=== PATIENT | male | born 1960 | race Caucasian/White ===

== ENCOUNTER 2021-02-24 16:40 | Inpatient (IN) ==
[2021-02-24] MEDS ORDERED: Isovue-370 500 ML BOTTLE IVP ONE (16:54)
[2021-02-24 17:13] LABS: ABG Base Excess -12 mEq/L (-2 to 3); ABG HCO3 13 mEq/L (21-27); ABG Oxygen Saturation 94 % (95-98); ABG PCO2 27 mmHg (35-45); ABG PO2 77 mmHg (85-104); ABG TCO2 14 mEq/L (20-26)
[2021-02-24 17:15] LABS: Basophils # 0.1 K/mcL (0.0-0.2); Basophils % 0.4 %; Hematocrit 43.3 % (37.5-50.1); Hemoglobin 14.2 g/dL (12.9-16.9); Immature Granulocytes % 2.1 % (0-4); Mean Corpuscular HGB Conc 32.8 g/dL (31.6-35.5); Mean Corpuscular Hemoglobin 28.7 pg (28.0-33.3); Mean Corpuscular Volume 87.7 fL (83.0-100.0); Mean Platelet Volume 10.2 fL (9.4-12.4); Monocytes # 0.7 K/mcL (0.0-1.3); Monocytes % 4.6 %; Neutrophils # 12.3 K/mcL (1.6-8.9); Nucleated Red Blood Cells 0.1 /100 WBC (0); Platelet Count 356 K/mcL (140-400); Red Blood Count 4.94 M/mcL (4.19-5.50); Red Cell Distribution Width 13.8 % (11.5-14.5); Segmented Neutrophils % 79.9 %; White Blood Count 15.4 K/mcL (4.3-11.1)
[2021-02-24 17:40] LABS: Calcium 8.4 mg/dL (8.6-10.3); Potassium 4.5 mEq/L (3.5-5.1)
[2021-02-24 17:43] LABS: Troponin I 0.04 ng/mL (< 0.04)
[2021-02-24 17:48] LABS: Large Platelets Present (Not Present); Reactive Lymphocytes Present (Not Present); Smudge Cells Present (Not Present)
[2021-02-24 17:49] LABS: VBG HCO3 15 mEq/L (21-27); VBG PCO2 44 mmHg (41-51); VBG PH 7.12 pH Units (7.32-7.42); VBG PO2 29 mmHg (25-50)
[2021-02-24] MEDS ORDERED: 0.9 % Sodium Chloride 1,000 ML IVC ONE (17:49)
[2021-02-24 18:07] LABS: Influenza A PCR Negative (Negative); Influenza B PCR Negative (Negative); Resp. Syncytial Virus PCR Negative (Negative)
[2021-02-24 18:08] LABS: SARS-CoV-2 by PCR (In House) Positive (Negative)
[2021-02-24] MEDS ORDERED: Azithromycin 500 MG in 0.9 % Sodium Chloride 250 ML IVPB ONE (18:28)
[2021-02-24] MEDS ORDERED: cefTRIAXone 2,000 MG in 0.9 % Sodium Chloride Mini Bag 100 ML IVPB ONE (18:28)
[2021-02-24] MEDS ORDERED: *HR* Heparin 5,000 UNIT/ML VIAL IVP PRN ×2 (18:29)
[2021-02-24] MEDS ORDERED: *HR* Heparin 5,000 UNIT/ML VIAL IVP ONE (18:29)
[2021-02-24 18:52] LABS: Albumin 3.8 g/dL (3.5-5.7); Albumin/Globulin Ratio 1.1 (1.1-2.2); Bilirubin,Direct 0.5 mg/dL (0.0-0.2); Bilirubin,Indirect 0.9 mg/dL (0.0-1.0); Bilirubin,Total 1.4 mg/dL (0.3-1.0); Globulin 3.5 g/dL (2.4-3.5); Total Protein 7.3 g/dL (6.4-8.9)
[2021-02-24 19:24] LABS: Bilirubin,Urine Negative (Negative); Blood,Urine Moderate (Negative); Clarity,Urine Turbid (Clear); Color,Urine Yellow (Yellow); Glucose,Urine (UA) Normal (Normal); Granular Casts,Urine Few per lpf (None Seen); Hyaline Casts,Urine Many per lpf (None Seen); Ketones,Urine Negative (Negative); Leukocyte Esterase,Urine Large (Negative); Mucus,Urine Few per lpf (None-Few); Nitrite,Urine Negative (Negative); PH,Urine 5.5 pH Units (5.0-8.0); Protein,Urine 70 mg/dL (Neg-Trace); RBC,Urine 0-3 per hpf (0-3); Specific Gravity,Urine 1.018 (1.010-1.025); Squamous Epithelial Cell,Urine Few per hpf (None-Few); Urobilinogen,Urine Normal (Normal)
[2021-02-24] MEDS ORDERED: Naloxone 0.4 MG/ML INJ IVP PRN (20:06)
[2021-02-24 20:24] LABS: Hematocrit 39.2 % (37.5-50.1); Hemoglobin 13.4 g/dL (12.9-16.9); Mean Corpuscular HGB Conc 34.2 g/dL (31.6-35.5); Mean Corpuscular Volume 84.8 fL (83.0-100.0); Mean Platelet Volume 10.2 fL (9.4-12.4); Platelet Count 290 K/mcL (140-400); Red Blood Count 4.62 M/mcL (4.19-5.50); Red Cell Distribution Width 13.6 % (11.5-14.5); White Blood Count 13.4 K/mcL (4.3-11.1)
[2021-02-24] MEDS ORDERED: 0.9 % Sodium Chloride 250 ML ONE (20:30)
[2021-02-24 20:43] LABS: Potassium 4.8 mEq/L (3.5-5.1)
[2021-02-24 21:13] LABS: INR 1.2; Prothrombin Time 13.2 Seconds (9.4-12.1)
[2021-02-24 21:16] LABS: Heparin anti-factor XA UFH < 0.04 IU/mL (0.30-0.70)
[2021-02-24] MEDS: Heparin 25,000UNIT/250ML 1/2NS 25,000 UNIT/250 ML IV.SOLN IVC SCH (21:18)
[2021-02-24] MEDS ORDERED: *HR* LORazepam 2 MG/ML VIAL IVP ONE (22:58)
[2021-02-24 23:57] LABS: Calcium 7.8 mg/dL (8.6-10.3); Potassium 4.8 mEq/L (3.5-5.1)
[2021-02-25 00:04] LABS: Troponin I 0.04 ng/mL (< 0.04)
[2021-02-25 00:35] LABS: Amphetamine Screen,Urine Negative ng/mL (Cutoff=1000); Barbiturate Screen,Urine Negative ng/mL (Cutoff=200); Benzodiazepines Screen,Urine Negative ng/mL (Cutoff=200); Cannabinoid Screen,Urine Negative ng/mL (Cutoff = 50); Cocaine Screen,Urine Negative ng/mL (Cutoff= 300); Opiate Screen,Urine Negative ng/mL (Cutoff=300); Phencyclidine Screen,Urine Negative ng/mL (Cutoff=25)
[2021-02-25] MEDS ORDERED: Perflutren Lipid Microsphere 1.3 ML in 0.9 % Sodium Chloride 8.7 ML IVP PRN (00:49)
[2021-02-25 04:51] LABS: Basophils % 0.3 %; Hemoglobin 12.9 g/dL (12.9-16.9); Immature Granulocytes % 1.3 % (0-4); Lymphocytes # 1.2 K/mcL (0.6-4.6); Lymphocytes % 10.4 %; Mean Corpuscular HGB Conc 34.9 g/dL (31.6-35.5); Mean Corpuscular Hemoglobin 29.6 pg (28.0-33.3); Mean Corpuscular Volume 84.9 fL (83.0-100.0); Mean Platelet Volume 10.2 fL (9.4-12.4); Monocytes # 0.3 K/mcL (0.0-1.3); Monocytes % 2.5 %; Neutrophils # 9.6 K/mcL (1.6-8.9); Platelet Count 336 K/mcL (140-400); Red Blood Count 4.36 M/mcL (4.19-5.50); Red Cell Distribution Width 13.6 % (11.5-14.5); Segmented Neutrophils % 85.5 %; White Blood Count 11.2 K/mcL (4.3-11.1)
[2021-02-25 05:02] LABS: Fibrinogen 578 mg/dL (169-393)
[2021-02-25 05:04] LABS: D-Dimer 1990 ng/mLFEU (0-500)
[2021-02-25 05:10] LABS: Albumin 3.4 g/dL (3.5-5.7); Albumin/Globulin Ratio 1.1 (1.1-2.2); Bilirubin,Direct 0.2 mg/dL (0.0-0.2); Bilirubin,Indirect 0.6 mg/dL (0.0-1.0); Bilirubin,Total 0.8 mg/dL (0.3-1.0); Calcium 8.2 mg/dL (8.6-10.3); Chol/HDL Ratio 2.3 (0-4.9); Globulin 3.2 g/dL (2.4-3.5); Magnesium 2.3 mg/dL (1.6-2.6); Phosphorous 4.4 mg/dL (2.7-4.5); Potassium 4.5 mEq/L (3.5-5.1); Total Protein 6.6 g/dL (6.4-8.9)
[2021-02-25 05:22] LABS: Thyroid Stimulating Hormone 0.426 mcIU/mL (0.340-5.600)
[2021-02-25 06:05] LABS: Platelet Estimate Normal (Normal); Reactive Lymphocytes Present (Not Present)
[2021-02-25 06:46] LABS: Estimated Average Glucose 151 mg/dl; Hemoglobin A1C 6.9 %
[2021-02-25] MEDS: cefTRIAXone 1,000 MG in 0.9 % Sodium Chloride Mini Bag 100 ML IVPB SCH (09:57)
[2021-02-25] MEDS: Azithromycin 500 MG in 0.9 % Sodium Chloride 250 ML IVPB SCH (09:58)
[2021-02-25 13:36] LABS: BUN/Creatinine Ratio 34 (6-26); Blood Urea Nitrogen 49 mg/dL (8-23); Calcium 8.4 mg/dL (8.6-10.3); Carbon Dioxide 14 mEq/L (23-29); Chloride 105 mEq/L (98-107); Glucose 131 mg/dL (70-105); Osmolality,Calculated 275 (280-300); Potassium 4.7 mEq/L (3.5-5.1); Sodium 125 mEq/L (136-145); eGFR For African Americans > 60 (> 60); eGFR For Non-African Americans 50 (> 60)
[2021-02-25] MEDS: Heparin 25,000UNIT/250ML 1/2NS 25,000 UNIT/250 ML IV.SOLN IVC SCH (15:40)
[2021-02-25 17:11] LABS: BUN/Creatinine Ratio 34 (6-26); Blood Urea Nitrogen 44 mg/dL (8-23); Calcium 8.4 mg/dL (8.6-10.3); Carbon Dioxide 24 mEq/L (23-29); Chloride 103 mEq/L (98-107); Glucose 161 mg/dL (70-105); Osmolality,Calculated 283 (280-300); Potassium 4.7 mEq/L (3.5-5.1); Sodium 129 mEq/L (136-145); eGFR For African Americans > 60 (> 60); eGFR For Non-African Americans 56 (> 60)
[2021-02-25] MEDS: Benzonatate 100 MG CAPSULE PO PRN (22:03)
[2021-02-25] MEDS: Artificial Tears SOLN 15 ML BOTTLE BOTH EYES SCH (22:04)
[2021-02-25] MEDS: Acetaminophen 325 MG TABLET PO PRN (22:04)
[2021-02-25] MEDS: Ipratropium 1 PUFF INHALER IH SCH (23:10)
[2021-02-26 01:53] LABS: Hepatitis B Surface Antigen Nonreactive (Nonreactive)
[2021-02-26 02:23] LABS: Hepatitis C Virus Antibody Nonreactive (Nonreactive)
[2021-02-26 02:25] LABS: Hepatitis A Antibody IgM Nonreactive (Nonreactive); Hepatitis B Core IgM Nonreactive (Nonreactive)
[2021-02-26 02:56] LABS: VBG HCO3 23 mEq/L (21-27); VBG PCO2 33 mmHg (41-51); VBG PH 7.44 pH Units (7.32-7.42); VBG PO2 91 mmHg (25-50)
[2021-02-26] MEDS: Ipratropium 1 PUFF INHALER IH SCH ×4 (03:39→20:30)
[2021-02-26 04:59] LABS: Basophils # 0.1 K/mcL (0.0-0.2); Basophils % 0.6 %; Hematocrit 39.8 % (37.5-50.1); Hemoglobin 13.1 g/dL (12.9-16.9); Immature Granulocytes % 3.3 % (0-4); Lymphocytes # 1.6 K/mcL (0.6-4.6); Lymphocytes % 8.9 %; Mean Corpuscular HGB Conc 32.9 g/dL (31.6-35.5); Mean Corpuscular Hemoglobin 28.3 pg (28.0-33.3); Mean Platelet Volume 9.8 fL (9.4-12.4); Monocytes % 5.5 %; Neutrophils # 14.6 K/mcL (1.6-8.9); Nucleated Red Blood Cells 0.4 /100 WBC (0); Platelet Count 437 K/mcL (140-400); Red Blood Count 4.63 M/mcL (4.19-5.50); Red Cell Distribution Width 13.9 % (11.5-14.5); Segmented Neutrophils % 81.7 %
[2021-02-26 05:18] LABS: BUN/Creatinine Ratio 35 (6-26); Blood Urea Nitrogen 43 mg/dL (8-23); Calcium 8.5 mg/dL (8.6-10.3); Carbon Dioxide 23 mEq/L (23-29); Chloride 102 mEq/L (98-107); Glucose 153 mg/dL (70-105); Magnesium 2.7 mg/dL (1.6-2.6); Osmolality,Calculated 290 (280-300); Potassium 4.9 mEq/L (3.5-5.1); Sodium 133 mEq/L (136-145); eGFR For African Americans > 60 (> 60); eGFR For Non-African Americans 60 (> 60)
[2021-02-26 05:35] LABS: White Blood Count 17.9 K/mcL (4.3-11.1)
[2021-02-26 06:03] LABS: Anisocytosis 1+ (Not Present); Platelet Estimate Normal (Normal); Reactive Lymphocytes Present (Not Present)
[2021-02-26] MEDS: Azithromycin 500 MG in 0.9 % Sodium Chloride 250 ML IVPB SCH (07:35)
[2021-02-26] MEDS: cefTRIAXone 1,000 MG in 0.9 % Sodium Chloride Mini Bag 100 ML IVPB SCH (07:36)
[2021-02-26] MEDS: Cholecalciferol (D-3) 1,000 UNIT (25MCG) TABLET PO SCH (09:35)
[2021-02-26] MEDS: Artificial Tears SOLN 15 ML BOTTLE BOTH EYES SCH ×4 (09:35→21:27)
[2021-02-26] MEDS: Loratadine 10 MG TABLET PO SCH (09:35)
[2021-02-26] MEDS ORDERED: Furosemide 40 MG/4 ML VIAL IVP ONE (13:56)
[2021-02-26] MEDS: Heparin 25,000UNIT/250ML 1/2NS 25,000 UNIT/250 ML IV.SOLN IVC SCH ×2 (15:17)
[2021-02-26] MEDS: Acetaminophen 325 MG TABLET PO PRN (17:09)
[2021-02-26] MEDS: Latanoprost 2.5 ML BOTTLE BOTH EYES SCH (21:27)
[2021-02-26] MEDS: Metoprolol 100 MG TABLET PO SCH (21:27)
[2021-02-26] MEDS: Dorzolamide OPTH 10 ML BOTTLE BOTH EYES SCH (21:28)
[2021-02-27] MEDS: Ipratropium 1 PUFF INHALER IH SCH ×4 (04:18→19:52)
[2021-02-27 05:45] LABS: Heparin anti-factor XA UFH 0.46 IU/mL (0.30-0.70)
[2021-02-27 05:48] LABS: Basophils # 0.1 K/mcL (0.0-0.2); Basophils % 0.7 %; Eosinophils % 0.1 %; Hematocrit 38.4 % (37.5-50.1); Hemoglobin 12.8 g/dL (12.9-16.9); Immature Granulocytes % 5.8 % (0-4); Lymphocytes # 1.8 K/mcL (0.6-4.6); Lymphocytes % 9.3 %; Mean Corpuscular HGB Conc 33.3 g/dL (31.6-35.5); Mean Corpuscular Hemoglobin 29.2 pg (28.0-33.3); Mean Corpuscular Volume 87.7 fL (83.0-100.0); Mean Platelet Volume 9.3 fL (9.4-12.4); Monocytes # 1.3 K/mcL (0.0-1.3); Monocytes % 6.7 %; Neutrophils # 15.2 K/mcL (1.6-8.9); Nucleated Red Blood Cells 1.1 /100 WBC (0); Platelet Count 504 K/mcL (140-400); Red Blood Count 4.38 M/mcL (4.19-5.50); Segmented Neutrophils % 77.4 %; White Blood Count 19.6 K/mcL (4.3-11.1)
[2021-02-27 05:56] LABS: Anisocytosis 1+ (Not Present)
[2021-02-27 06:03] LABS: BUN/Creatinine Ratio 35 (6-26); Blood Urea Nitrogen 43 mg/dL (8-23); Calcium 8.5 mg/dL (8.6-10.3); Carbon Dioxide 26 mEq/L (23-29); Chloride 99 mEq/L (98-107); Glucose 140 mg/dL (70-105); Magnesium 2.7 mg/dL (1.6-2.6); Osmolality,Calculated 291 (280-300); Potassium 4.4 mEq/L (3.5-5.1); Sodium 134 mEq/L (136-145); eGFR For African Americans > 60 (> 60); eGFR For Non-African Americans > 60 (> 60)
[2021-02-27 06:04] LABS: Albumin 3.3 g/dL (3.5-5.7); Bilirubin,Direct 0.2 mg/dL (0.0-0.2); Bilirubin,Indirect 0.6 mg/dL (0.0-1.0); Bilirubin,Total 0.8 mg/dL (0.3-1.0); Globulin 3.2 g/dL (2.4-3.5); Total Protein 6.5 g/dL (6.4-8.9)
[2021-02-27] MEDS: Loratadine 10 MG TABLET PO SCH ×2 (09:32→09:35)
[2021-02-27] MEDS: Artificial Tears SOLN 15 ML BOTTLE BOTH EYES SCH ×4 (09:33→19:52)
[2021-02-27] MEDS: Cholecalciferol (D-3) 1,000 UNIT (25MCG) TABLET PO SCH (09:33)
[2021-02-27] MEDS: Latanoprost 2.5 ML BOTTLE BOTH EYES SCH (09:34)
[2021-02-27] MEDS: Azithromycin 500 MG in 0.9 % Sodium Chloride 250 ML IVPB SCH (09:35)
[2021-02-27] MEDS: Metoprolol 100 MG TABLET PO SCH ×2 (09:44→19:53)
[2021-02-27] MEDS: cefTRIAXone 1,000 MG in 0.9 % Sodium Chloride Mini Bag 100 ML IVPB SCH (09:44)
[2021-02-27] MEDS: Dorzolamide OPTH 10 ML BOTTLE BOTH EYES SCH ×2 (09:45→19:52)
[2021-02-27] MEDS: Heparin 25,000UNIT/250ML 1/2NS 25,000 UNIT/250 ML IV.SOLN IVC SCH ×2 (11:23→14:11)
[2021-02-27] MEDS: Nystatin POWDER 30 GM BOTTLE TP SCH ×2 (20:43→21:30)
[2021-02-27] MEDS ORDERED: *HR* LORazepam 1 MG TABLET PO ONE (21:34)
[2021-02-28] MEDS ORDERED: QUEtiapine Fumarate 25 MG TABLET PO ONE (01:00)
[2021-02-28] MEDS: Ipratropium 1 PUFF INHALER IH SCH ×4 (03:53→20:04)
[2021-02-28 05:34] LABS: Basophils # 0.1 K/mcL (0.0-0.2); Basophils % 0.5 %; Hematocrit 38.3 % (37.5-50.1); Hemoglobin 12.3 g/dL (12.9-16.9); Immature Granulocytes % 6.3 % (0-4); Lymphocytes # 1.9 K/mcL (0.6-4.6); Lymphocytes % 9.1 %; Mean Corpuscular HGB Conc 32.1 g/dL (31.6-35.5); Mean Corpuscular Hemoglobin 28.5 pg (28.0-33.3); Mean Corpuscular Volume 88.7 fL (83.0-100.0); Mean Platelet Volume 9.1 fL (9.4-12.4); Monocytes # 1.5 K/mcL (0.0-1.3); Monocytes % 7.2 %; Neutrophils # 16.3 K/mcL (1.6-8.9); Nucleated Red Blood Cells 0.5 /100 WBC (0); Platelet Count 469 K/mcL (140-400); Red Blood Count 4.32 M/mcL (4.19-5.50); Red Cell Distribution Width 13.8 % (11.5-14.5); Segmented Neutrophils % 76.9 %; White Blood Count 21.2 K/mcL (4.3-11.1)
[2021-02-28 05:44] LABS: Heparin anti-factor XA UFH 0.47 IU/mL (0.30-0.70)
[2021-02-28 05:56] LABS: Platelet Estimate Normal (Normal); Polychromasia 1+ (Not Present)
[2021-02-28 05:58] LABS: Alanine Aminotransferase 125 Units/L (7-52); Albumin 3.1 g/dL (3.5-5.7); Albumin/Globulin Ratio 1.1 (1.1-2.2); Alkaline Phosphatase 108 Units/L (34-104); Aspartate Amino Transferase 91 Units/L (13-39); BUN/Creatinine Ratio 40 (6-26); Bilirubin,Direct 0.2 mg/dL (0.0-0.2); Bilirubin,Indirect 0.7 mg/dL (0.0-1.0); Bilirubin,Total 0.9 mg/dL (0.3-1.0); Blood Urea Nitrogen 41 mg/dL (8-23); Calcium 8.2 mg/dL (8.6-10.3); Carbon Dioxide 21 mEq/L (23-29); Chloride 102 mEq/L (98-107); Globulin 2.9 g/dL (2.4-3.5); Glucose 142 mg/dL (70-105); Magnesium 2.4 mg/dL (1.6-2.6); Osmolality,Calculated 287 (280-300); Potassium 4.7 mEq/L (3.5-5.1); Sodium 132 mEq/L (136-145); eGFR For African Americans > 60 (> 60); eGFR For Non-African Americans > 60 (> 60)
[2021-02-28] MEDS: Cholecalciferol (D-3) 1,000 UNIT (25MCG) TABLET PO SCH (09:05)
[2021-02-28] MEDS: Metoprolol 100 MG TABLET PO SCH ×2 (09:05→20:29)
[2021-02-28] MEDS: Nystatin POWDER 30 GM BOTTLE TP SCH ×2 (09:05→20:28)
[2021-02-28] MEDS: cefTRIAXone 1,000 MG in 0.9 % Sodium Chloride Mini Bag 100 ML IVPB SCH (09:06)
[2021-02-28] MEDS: Dorzolamide OPTH 10 ML BOTTLE BOTH EYES SCH ×2 (09:07→20:29)
[2021-02-28] MEDS: Azithromycin 500 MG in 0.9 % Sodium Chloride 250 ML IVPB SCH (09:07)
[2021-02-28] MEDS: Artificial Tears SOLN 15 ML BOTTLE BOTH EYES SCH ×4 (09:08→20:28)
[2021-02-28] MEDS: Heparin 25,000UNIT/250ML 1/2NS 25,000 UNIT/250 ML IV.SOLN IVC SCH (09:40)
[2021-02-28] MEDS ORDERED: Isovue-370 500 ML BOTTLE IVP ONE (17:06)
[2021-02-28] MEDS: *HR* Enoxaparin 30 MG/0.3 ML SYRINGE SQ SCH (18:32)
[2021-02-28] MEDS: Latanoprost 2.5 ML BOTTLE BOTH EYES SCH (20:29)
[2021-02-28] MEDS: Benzonatate 100 MG CAPSULE PO PRN (20:29)
[2021-02-28] MEDS: *HR* OxyCODONE Immed Rel 5 MG TABLET PO PRN (22:45)
[2021-03-01] MEDS: Ipratropium 1 PUFF INHALER IH SCH ×5 (04:17→23:47)
[2021-03-01 05:19] LABS: Hematocrit 41.1 % (37.5-50.1); Hemoglobin 13.6 g/dL (12.9-16.9); Mean Corpuscular HGB Conc 33.1 g/dL (31.6-35.5); Mean Corpuscular Hemoglobin 29.4 pg (28.0-33.3); Mean Corpuscular Volume 88.8 fL (83.0-100.0); Platelet Count 250 K/mcL (140-400); Red Blood Count 4.63 M/mcL (4.19-5.50); Red Cell Distribution Width 13.7 % (11.5-14.5); White Blood Count 27.8 K/mcL (4.3-11.1)
[2021-03-01] MEDS: Acetaminophen 325 MG TABLET PO PRN (05:33)
[2021-03-01] MEDS: *HR* Enoxaparin 30 MG/0.3 ML SYRINGE SQ SCH ×2 (05:34→17:36)
[2021-03-01 05:41] LABS: Alanine Aminotransferase 130 Units/L (7-52); Albumin 3.3 g/dL (3.5-5.7); Albumin/Globulin Ratio 1.1 (1.1-2.2); Alkaline Phosphatase 121 Units/L (34-104); Aspartate Amino Transferase 79 Units/L (13-39); BUN/Creatinine Ratio 36 (6-26); Blood Urea Nitrogen 39 mg/dL (8-23); C-Reactive Protein 21 mg/L (Less than 10); Calcium 8.5 mg/dL (8.6-10.3); Carbon Dioxide 21 mEq/L (23-29); Chloride 103 mEq/L (98-107); Glucose 125 mg/dL (70-105); Osmolality,Calculated 283 (280-300); Potassium 4.8 mEq/L (3.5-5.1); Sodium 131 mEq/L (136-145); Total Protein 6.3 g/dL (6.4-8.9); eGFR For African Americans > 60 (> 60); eGFR For Non-African Americans > 60 (> 60)
[2021-03-01] MEDS ORDERED: Furosemide 40 MG/4 ML VIAL IVP ONE (05:48)
[2021-03-01] MEDS: Ondansetron 4 MG/2 ML VIAL IVP PRN (06:00)
[2021-03-01 06:09] LABS: ABG Base Excess -3 mEq/L (-2 to 3); ABG HCO3 21 mEq/L (21-27); ABG Oxygen Saturation 96 % (95-98); ABG PCO2 33 mmHg (35-45); ABG PH 7.42 pH Units (7.32-7.45); ABG PO2 78 mmHg (85-104); ABG TCO2 22 mEq/L (20-26)
[2021-03-01] MEDS: *HR* LORazepam 0.5 MG TABLET PO PRN ×2 (06:36→21:45)
[2021-03-01] MEDS: cefTRIAXone 1,000 MG in 0.9 % Sodium Chloride Mini Bag 100 ML IVPB SCH (07:45)
[2021-03-01] MEDS: Metoprolol 100 MG TABLET PO SCH ×2 (07:46→21:01)
[2021-03-01] MEDS: Loratadine 10 MG TABLET PO SCH (07:46)
[2021-03-01] MEDS: Cholecalciferol (D-3) 1,000 UNIT (25MCG) TABLET PO SCH (07:46)
[2021-03-01] MEDS: Artificial Tears SOLN 15 ML BOTTLE BOTH EYES SCH ×4 (07:47→21:02)
[2021-03-01] MEDS: Azithromycin 500 MG in 0.9 % Sodium Chloride 250 ML IVPB SCH (07:47)
[2021-03-01] MEDS: Dorzolamide OPTH 10 ML BOTTLE BOTH EYES SCH ×2 (07:48→21:03)
[2021-03-01] MEDS: Nystatin POWDER 30 GM BOTTLE TP SCH ×2 (07:48→21:03)
[2021-03-01] MEDS: *HR* OxyCODONE Immed Rel 5 MG TABLET PO PRN (10:48)
[2021-03-01] MEDS: Latanoprost 2.5 ML BOTTLE BOTH EYES SCH (21:03)
[2021-03-02 02:11] LABS: Hematocrit 40.3 % (37.5-50.1); Mean Corpuscular HGB Conc 32.3 g/dL (31.6-35.5); Mean Corpuscular Hemoglobin 28.6 pg (28.0-33.3); Mean Corpuscular Volume 88.6 fL (83.0-100.0); Mean Platelet Volume 9.3 fL (9.4-12.4); Platelet Count 189 K/mcL (140-400); Red Blood Count 4.55 M/mcL (4.19-5.50); Red Cell Distribution Width 13.9 % (11.5-14.5); White Blood Count 20.4 K/mcL (4.3-11.1)
[2021-03-02 02:31] LABS: Alanine Aminotransferase 116 Units/L (7-52); Albumin 3.1 g/dL (3.5-5.7); Alkaline Phosphatase 102 Units/L (34-104); Aspartate Amino Transferase 61 Units/L (13-39); BUN/Creatinine Ratio 41 (6-26); Bilirubin,Total 0.9 mg/dL (0.3-1.0); Blood Urea Nitrogen 42 mg/dL (8-23); C-Reactive Protein 39 mg/L (Less than 10); Calcium 8.4 mg/dL (8.6-10.3); Carbon Dioxide 20 mEq/L (23-29); Chloride 101 mEq/L (98-107); Glucose 141 mg/dL (70-105); Lactate Dehydrogenase 913 Units/L (140-271); Osmolality,Calculated 279 (280-300); Potassium 5.3 mEq/L (3.5-5.1); Sodium 128 mEq/L (136-145); Total Protein 6.1 g/dL (6.4-8.9); eGFR For African Americans > 60 (> 60); eGFR For Non-African Americans > 60 (> 60)
[2021-03-02 02:49] LABS: Ferritin > 1500 ng/mL (20-250)
[2021-03-02] MEDS: Ipratropium 1 PUFF INHALER IH SCH ×6 (04:09→23:42)
[2021-03-02] MEDS: *HR* Enoxaparin 30 MG/0.3 ML SYRINGE SQ SCH ×2 (06:00→17:01)
[2021-03-02] MEDS ORDERED: Azithromycin 500 MG VIAL ONE (08:12)
[2021-03-02] MEDS: cefTRIAXone 1,000 MG in 0.9 % Sodium Chloride Mini Bag 100 ML IVPB SCH (08:57)
[2021-03-02] MEDS: Azithromycin 500 MG in 0.9 % Sodium Chloride 250 ML IVPB SCH (08:58)
[2021-03-02] MEDS: Metoprolol 100 MG TABLET PO SCH ×2 (08:59→20:40)
[2021-03-02] MEDS: Cholecalciferol (D-3) 1,000 UNIT (25MCG) TABLET PO SCH (08:59)
[2021-03-02] MEDS: Artificial Tears SOLN 15 ML BOTTLE BOTH EYES SCH ×4 (09:00→20:40)
[2021-03-02] MEDS: Dorzolamide OPTH 10 ML BOTTLE BOTH EYES SCH ×2 (09:01→20:41)
[2021-03-02] MEDS: Nystatin POWDER 30 GM BOTTLE TP SCH ×2 (09:01→20:41)
[2021-03-02] MEDS: Furosemide 20 MG/2 ML VIAL IVP SCH (09:18)
[2021-03-02] MEDS: *HR* LORazepam 2 MG/ML VIAL IVP PRN (09:24)
[2021-03-02] MEDS: Benzonatate 100 MG CAPSULE PO PRN (09:24)
[2021-03-02] MEDS: *HR* OxyCODONE Immed Rel 5 MG TABLET PO PRN ×2 (11:51→20:40)
[2021-03-02] MEDS: Melatonin 3 MG TABLET PO SCH (20:39)
[2021-03-02] MEDS: Latanoprost 2.5 ML BOTTLE BOTH EYES SCH (20:40)
[2021-03-02] MEDS: Saline Nasal Spray 44 ML BOTTLE NS PRN (23:59)
[2021-03-03 01:14] LABS: Hematocrit 38.2 % (37.5-50.1); Hemoglobin 12.9 g/dL (12.9-16.9); Mean Corpuscular HGB Conc 33.8 g/dL (31.6-35.5); Mean Corpuscular Hemoglobin 29.5 pg (28.0-33.3); Mean Corpuscular Volume 87.4 fL (83.0-100.0); Mean Platelet Volume 10.4 fL (9.4-12.4); Platelet Count 199 K/mcL (140-400); Red Blood Count 4.37 M/mcL (4.19-5.50); Red Cell Distribution Width 13.7 % (11.5-14.5); White Blood Count 23.8 K/mcL (4.3-11.1)
[2021-03-03 01:32] LABS: Alanine Aminotransferase 138 Units/L (7-52); Albumin 3.2 g/dL (3.5-5.7); Albumin/Globulin Ratio 1.1 (1.1-2.2); Alkaline Phosphatase 94 Units/L (34-104); Aspartate Amino Transferase 74 Units/L (13-39); BUN/Creatinine Ratio 47 (6-26); Bilirubin,Total 0.8 mg/dL (0.3-1.0); Blood Urea Nitrogen 47 mg/dL (8-23); C-Reactive Protein 27 mg/L (Less than 10); Calcium 8.4 mg/dL (8.6-10.3); Carbon Dioxide 22 mEq/L (23-29); Chloride 97 mEq/L (98-107); Glucose 148 mg/dL (70-105); Osmolality,Calculated 281 (280-300); Potassium 5.1 mEq/L (3.5-5.1); Sodium 128 mEq/L (136-145); Total Protein 6.2 g/dL (6.4-8.9); eGFR For African Americans > 60 (> 60); eGFR For Non-African Americans > 60 (> 60)
[2021-03-03 01:54] LABS: Ferritin > 1500 ng/mL (20-250); Lactate Dehydrogenase 1168 Units/L (140-271)
[2021-03-03] MEDS: Ipratropium 1 PUFF INHALER IH SCH ×6 (03:57→23:48)
[2021-03-03] MEDS: *HR* Enoxaparin 30 MG/0.3 ML SYRINGE SQ SCH (06:09)
[2021-03-03] MEDS: cefTRIAXone 1,000 MG in 0.9 % Sodium Chloride Mini Bag 100 ML IVPB SCH (08:36)
[2021-03-03] MEDS: Azithromycin 500 MG in 0.9 % Sodium Chloride 250 ML IVPB SCH (08:37)
[2021-03-03] MEDS: Cholecalciferol (D-3) 1,000 UNIT (25MCG) TABLET PO SCH (08:46)
[2021-03-03] MEDS: Metoprolol 100 MG TABLET PO SCH ×2 (08:46→20:09)
[2021-03-03] MEDS: Dorzolamide OPTH 10 ML BOTTLE BOTH EYES SCH ×2 (08:46→20:10)
[2021-03-03] MEDS: Furosemide 20 MG/2 ML VIAL IVP SCH (08:47)
[2021-03-03] MEDS: Nystatin POWDER 30 GM BOTTLE TP SCH ×2 (08:47→20:11)
[2021-03-03] MEDS: Artificial Tears SOLN 15 ML BOTTLE BOTH EYES SCH ×4 (08:47→20:09)
[2021-03-03] MEDS: Saline Nasal Spray 44 ML BOTTLE NS PRN (08:59)
[2021-03-03] MEDS: *HR* LORazepam 2 MG/ML VIAL IVP PRN (10:50)
[2021-03-03] MEDS: *HR* Enoxaparin 40 MG/0.4 ML SYRINGE SQ SCH (17:42)
[2021-03-03] MEDS: Melatonin 3 MG TABLET PO SCH (20:08)
[2021-03-03] MEDS: *HR* OxyCODONE Immed Rel 5 MG TABLET PO PRN (20:08)
[2021-03-03] MEDS: Latanoprost 2.5 ML BOTTLE BOTH EYES SCH (20:10)
[2021-03-04] MEDS: Ipratropium 1 PUFF INHALER IH SCH ×6 (04:12→23:52)
[2021-03-04] MEDS: *HR* Enoxaparin 40 MG/0.4 ML SYRINGE SQ SCH ×2 (05:45→17:30)
[2021-03-04] MEDS: Metoprolol 100 MG TABLET PO SCH ×2 (08:03→20:50)
[2021-03-04] MEDS: Cholecalciferol (D-3) 1,000 UNIT (25MCG) TABLET PO SCH (08:04)
[2021-03-04] MEDS: Dorzolamide OPTH 10 ML BOTTLE BOTH EYES SCH ×2 (08:07→20:53)
[2021-03-04] MEDS: *HR* LORazepam 2 MG/ML VIAL IVP PRN ×2 (08:09→21:38)
[2021-03-04] MEDS: Furosemide 20 MG/2 ML VIAL IVP SCH (08:10)
[2021-03-04] MEDS: Azithromycin 500 MG in 0.9 % Sodium Chloride 250 ML IVPB SCH (08:10)
[2021-03-04] MEDS: cefTRIAXone 1,000 MG in 0.9 % Sodium Chloride Mini Bag 100 ML IVPB SCH (08:11)
[2021-03-04] MEDS: Artificial Tears SOLN 15 ML BOTTLE BOTH EYES SCH ×4 (08:13→20:54)
[2021-03-04] MEDS: Nystatin POWDER 30 GM BOTTLE TP SCH ×2 (08:16→20:56)
[2021-03-04] MEDS: *HR* OxyCODONE Immed Rel 5 MG TABLET PO PRN ×2 (08:51→17:30)
[2021-03-04] MEDS: Benzonatate 100 MG CAPSULE PO PRN (08:51)
[2021-03-04 08:57] LABS: Hematocrit 42.4 % (37.5-50.1); Hemoglobin 13.9 g/dL (12.9-16.9); Mean Corpuscular HGB Conc 32.8 g/dL (31.6-35.5); Mean Corpuscular Hemoglobin 28.8 pg (28.0-33.3); Mean Corpuscular Volume 87.8 fL (83.0-100.0); Mean Platelet Volume 10.3 fL (9.4-12.4); Platelet Count 219 K/mcL (140-400); Red Blood Count 4.83 M/mcL (4.19-5.50); Red Cell Distribution Width 13.8 % (11.5-14.5); White Blood Count 21.5 K/mcL (4.3-11.1)
[2021-03-04 09:19] LABS: Alanine Aminotransferase 198 Units/L (7-52); Albumin 3.3 g/dL (3.5-5.7); Alkaline Phosphatase 112 Units/L (34-104); Aspartate Amino Transferase 89 Units/L (13-39); BUN/Creatinine Ratio 47 (6-26); Bilirubin,Total 1.2 mg/dL (0.3-1.0); Blood Urea Nitrogen 47 mg/dL (8-23); Calcium 8.8 mg/dL (8.6-10.3); Carbon Dioxide 26 mEq/L (23-29); Chloride 97 mEq/L (98-107); Globulin 3.2 g/dL (2.4-3.5); Glucose 138 mg/dL (70-105); Osmolality,Calculated 288 (280-300); Potassium 4.9 mEq/L (3.5-5.1); Sodium 132 mEq/L (136-145); Total Protein 6.5 g/dL (6.4-8.9); eGFR For African Americans > 60 (> 60); eGFR For Non-African Americans > 60 (> 60)
[2021-03-04 09:22] LABS: Lactate Dehydrogenase 1027 Units/L (140-271)
[2021-03-04 09:46] LABS: Ferritin > 1500 ng/mL (20-250)
[2021-03-04] MEDS: Melatonin 3 MG TABLET PO SCH (20:50)
[2021-03-04] MEDS: Latanoprost 2.5 ML BOTTLE BOTH EYES SCH (20:53)
[2021-03-04] MEDS: Benzocaine 20% 12 APPL GEL..GRAM. TP PRN (20:55)
[2021-03-04] MEDS: Dexmedetomidine HCl 400 MCG/100 ML MLS IVC SCH (22:36)
[2021-03-05] MEDS: Dexmedetomidine HCl 400 MCG/100 ML MLS IVC SCH (01:30)
[2021-03-05] MEDS: Ipratropium 1 PUFF INHALER IH SCH ×6 (03:51→23:46)
[2021-03-05] MEDS: *HR* Enoxaparin 40 MG/0.4 ML SYRINGE SQ SCH ×2 (04:15→18:11)
[2021-03-05 05:00] LABS: Hematocrit 41.4 % (37.5-50.1); Hemoglobin 13.5 g/dL (12.9-16.9); Mean Corpuscular HGB Conc 32.6 g/dL (31.6-35.5); Mean Corpuscular Hemoglobin 28.3 pg (28.0-33.3); Mean Corpuscular Volume 86.8 fL (83.0-100.0); Mean Platelet Volume 10.5 fL (9.4-12.4); Platelet Count 211 K/mcL (140-400); Red Blood Count 4.77 M/mcL (4.19-5.50); Red Cell Distribution Width 13.5 % (11.5-14.5); White Blood Count 20.9 K/mcL (4.3-11.1)
[2021-03-05 05:25] LABS: Alanine Aminotransferase 268 Units/L (7-52); Albumin 3.2 g/dL (3.5-5.7); Alkaline Phosphatase 104 Units/L (34-104); Aspartate Amino Transferase 109 Units/L (13-39); BUN/Creatinine Ratio 56 (6-26); Bilirubin,Total 1.2 mg/dL (0.3-1.0); Blood Urea Nitrogen 47 mg/dL (8-23); Calcium 8.7 mg/dL (8.6-10.3); Carbon Dioxide 23 mEq/L (23-29); Chloride 99 mEq/L (98-107); Globulin 3.2 g/dL (2.4-3.5); Glucose 162 mg/dL (70-105); Lactate Dehydrogenase 1060 Units/L (140-271); Osmolality,Calculated 284 (280-300); Potassium 5.4 mEq/L (3.5-5.1); Sodium 129 mEq/L (136-145); Total Protein 6.4 g/dL (6.4-8.9); eGFR For African Americans > 60 (> 60); eGFR For Non-African Americans > 60 (> 60)
[2021-03-05 05:43] LABS: Ferritin > 1500 ng/mL (20-250)
[2021-03-05] MEDS: Dorzolamide OPTH 10 ML BOTTLE BOTH EYES SCH ×2 (07:43→19:56)
[2021-03-05] MEDS: Furosemide 20 MG/2 ML VIAL IVP SCH (09:14)
[2021-03-05] MEDS: Azithromycin 500 MG in 0.9 % Sodium Chloride 250 ML IVPB SCH (09:16)
[2021-03-05] MEDS: cefTRIAXone 1,000 MG in 0.9 % Sodium Chloride Mini Bag 100 ML IVPB SCH (09:19)
[2021-03-05] MEDS: Cholecalciferol (D-3) 1,000 UNIT (25MCG) TABLET PO SCH (09:20)
[2021-03-05] MEDS: Artificial Tears SOLN 15 ML BOTTLE BOTH EYES SCH ×4 (09:20→19:56)
[2021-03-05] MEDS: Nystatin POWDER 30 GM BOTTLE TP SCH ×2 (09:20→19:55)
[2021-03-05 11:07] LABS: C-Reactive Protein 27 mg/L (Less than 10)
[2021-03-05] MEDS: Melatonin 3 MG TABLET PO SCH (19:55)
[2021-03-05] MEDS: Latanoprost 2.5 ML BOTTLE BOTH EYES SCH (19:56)
[2021-03-05] MEDS: *HR* LORazepam 2 MG/ML VIAL IVP PRN ×2 (19:57→23:10)
[2021-03-05] MEDS: *HR* OxyCODONE Immed Rel 5 MG TABLET PO PRN (19:58)
[2021-03-05] MEDS: Benzonatate 100 MG CAPSULE PO PRN (23:09)
[2021-03-05] MEDS: Acetaminophen 325 MG TABLET PO PRN (23:09)
[2021-03-05] MEDS: Ondansetron 4 MG/2 ML VIAL IVP PRN (23:10)
[2021-03-06] MEDS: Ipratropium 1 PUFF INHALER IH SCH ×6 (03:05→23:48)
[2021-03-06] MEDS: *HR* LORazepam 2 MG/ML VIAL IVP PRN ×2 (03:08→20:37)
[2021-03-06 03:37] LABS: Hematocrit 42.3 % (37.5-50.1); Hemoglobin 13.9 g/dL (12.9-16.9); Mean Corpuscular HGB Conc 32.9 g/dL (31.6-35.5); Mean Corpuscular Hemoglobin 28.9 pg (28.0-33.3); Mean Corpuscular Volume 87.9 fL (83.0-100.0); Mean Platelet Volume 10.6 fL (9.4-12.4); Platelet Count 242 K/mcL (140-400); Red Blood Count 4.81 M/mcL (4.19-5.50); Red Cell Distribution Width 13.6 % (11.5-14.5)
[2021-03-06 03:54] LABS: Alanine Aminotransferase 232 Units/L (7-52); Albumin/Globulin Ratio 0.9 (1.1-2.2); Alkaline Phosphatase 126 Units/L (34-104); Aspartate Amino Transferase 82 Units/L (13-39); BUN/Creatinine Ratio 61 (6-26); Bilirubin,Total 1.3 mg/dL (0.3-1.0); Blood Urea Nitrogen 52 mg/dL (8-23); Calcium 8.7 mg/dL (8.6-10.3); Carbon Dioxide 23 mEq/L (23-29); Chloride 101 mEq/L (98-107); Globulin 3.2 g/dL (2.4-3.5); Glucose 147 mg/dL (70-105); Lactate Dehydrogenase 1026 Units/L (140-271); Osmolality,Calculated 293 (280-300); Potassium 5.1 mEq/L (3.5-5.1); Sodium 133 mEq/L (136-145); Total Protein 6.2 g/dL (6.4-8.9); eGFR For African Americans > 60 (> 60); eGFR For Non-African Americans > 60 (> 60)
[2021-03-06 04:17] LABS: Ferritin > 1500 ng/mL (20-250)
[2021-03-06] MEDS: *HR* Enoxaparin 40 MG/0.4 ML SYRINGE SQ SCH ×2 (04:47→18:45)
[2021-03-06] MEDS: Dorzolamide OPTH 10 ML BOTTLE BOTH EYES SCH ×2 (08:43→20:37)
[2021-03-06] MEDS: Cholecalciferol (D-3) 1,000 UNIT (25MCG) TABLET PO SCH (08:44)
[2021-03-06] MEDS: Artificial Tears SOLN 15 ML BOTTLE BOTH EYES SCH ×4 (08:44→20:37)
[2021-03-06] MEDS: Nystatin POWDER 30 GM BOTTLE TP SCH ×2 (08:44→20:37)
[2021-03-06] MEDS: cefTRIAXone 1,000 MG in 0.9 % Sodium Chloride Mini Bag 100 ML IVPB SCH (08:45)
[2021-03-06] MEDS: Furosemide 20 MG/2 ML VIAL IVP SCH (08:45)
[2021-03-06] MEDS: Azithromycin 500 MG in 0.9 % Sodium Chloride 250 ML IVPB SCH (08:46)
[2021-03-06] MEDS: Dexmedetomidine HCl 400 MCG/100 ML MLS IVC SCH (08:47)
[2021-03-06] MEDS: Benzocaine 20% 12 APPL GEL..GRAM. TP PRN (12:57)
[2021-03-06] MEDS: *HR* OxyCODONE Immed Rel 5 MG TABLET PO PRN ×2 (13:01→20:31)
[2021-03-06 16:10] LABS: ABG Base Excess 0 mEq/L (-2 to 3); ABG HCO3 24 mEq/L (21-27); ABG Oxygen Saturation 87 % (95-98); ABG PCO2 36 mmHg (35-45); ABG PH 7.43 pH Units (7.32-7.45); ABG PO2 52 mmHg (85-104); ABG TCO2 25 mEq/L (20-26)
[2021-03-06] MEDS: Acetaminophen 325 MG TABLET PO PRN (20:32)
[2021-03-06] MEDS: Melatonin 3 MG TABLET PO SCH (20:32)
[2021-03-06] MEDS: Benzonatate 100 MG CAPSULE PO PRN (20:32)
[2021-03-06] MEDS: Latanoprost 2.5 ML BOTTLE BOTH EYES SCH (20:36)
[2021-03-06] MEDS ORDERED: Saliva Stimulant 44.3ml BOTTLE PO PRN (21:07)
[2021-03-07] MEDS: Acetaminophen 325 MG TABLET PO PRN (03:53)
[2021-03-07] MEDS: *HR* Enoxaparin 40 MG/0.4 ML SYRINGE SQ SCH (03:54)
[2021-03-07] MEDS: *HR* OxyCODONE Immed Rel 5 MG TABLET PO PRN ×2 (03:54→16:51)
[2021-03-07] MEDS: Dexmedetomidine HCl 400 MCG/100 ML MLS IVC SCH (03:54)
[2021-03-07 04:25] LABS: Basophils # 0.1 K/mcL (0.0-0.2); Basophils % 0.3 %; Hematocrit 44.2 % (37.5-50.1); Hemoglobin 14.6 g/dL (12.9-16.9); Immature Granulocytes % 2.4 % (0-4); Lymphocytes # 0.9 K/mcL (0.6-4.6); Lymphocytes % 3.9 %; Mean Corpuscular Hemoglobin 29.2 pg (28.0-33.3); Mean Corpuscular Volume 88.4 fL (83.0-100.0); Mean Platelet Volume 10.6 fL (9.4-12.4); Monocytes % 4.4 %; Neutrophils # 20.1 K/mcL (1.6-8.9); Platelet Count 250 K/mcL (140-400); Red Cell Distribution Width 13.9 % (11.5-14.5); White Blood Count 22.6 K/mcL (4.3-11.1)
[2021-03-07] MEDS: Ipratropium 1 PUFF INHALER IH SCH ×6 (04:34→23:20)
[2021-03-07 05:03] LABS: Alanine Aminotransferase 532 Units/L (7-52); Albumin 3.1 g/dL (3.5-5.7); Albumin/Globulin Ratio 0.9 (1.1-2.2); Alkaline Phosphatase 198 Units/L (34-104); Aspartate Amino Transferase 345 Units/L (13-39); BUN/Creatinine Ratio 50 (6-26); Bilirubin,Total 1.5 mg/dL (0.3-1.0); Blood Urea Nitrogen 51 mg/dL (8-23); Calcium 8.9 mg/dL (8.6-10.3); Carbon Dioxide 25 mEq/L (23-29); Chloride 100 mEq/L (98-107); Globulin 3.3 g/dL (2.4-3.5); Glucose 168 mg/dL (70-105); Magnesium 2.7 mg/dL (1.6-2.6); Osmolality,Calculated 298 (280-300); Phosphorous 4.5 mg/dL (2.7-4.5); Potassium 5.8 mEq/L (3.5-5.1); Sodium 135 mEq/L (136-145); Total Protein 6.4 g/dL (6.4-8.9); eGFR For African Americans > 60 (> 60); eGFR For Non-African Americans > 60 (> 60)
[2021-03-07] MEDS ORDERED: SODIUM ZIRCONIUM CYCLOSILICATE 5 GM POWD.PACK PO ONE (07:39)
[2021-03-07] MEDS ORDERED: Isovue-370 500 ML BOTTLE IVP ONE (08:34)
[2021-03-07] MEDS: Furosemide 20 MG/2 ML VIAL IVP SCH (09:08)
[2021-03-07] MEDS: Dorzolamide OPTH 10 ML BOTTLE BOTH EYES SCH ×2 (09:09→20:19)
[2021-03-07] MEDS: Cholecalciferol (D-3) 1,000 UNIT (25MCG) TABLET PO SCH (09:09)
[2021-03-07] MEDS: Nystatin POWDER 30 GM BOTTLE TP SCH ×2 (09:09→20:19)
[2021-03-07] MEDS: Saline Nasal Spray 44 ML BOTTLE NS PRN (09:11)
[2021-03-07] MEDS: Artificial Tears SOLN 15 ML BOTTLE BOTH EYES SCH ×4 (09:12→20:19)
[2021-03-07] MEDS ORDERED: *HR* Heparin 5,000 UNIT/ML VIAL IVP ONE (10:04)
[2021-03-07] MEDS ORDERED: *HR* Heparin 5,000 UNIT/ML VIAL IVP PRN ×2 (10:04)
[2021-03-07] MEDS: Heparin 25,000UNIT/250ML 1/2NS 25,000 UNIT/250 ML IV.SOLN IVC SCH (11:44)
[2021-03-07] MEDS: Benzocaine 20% 12 APPL GEL..GRAM. TP PRN (16:48)
[2021-03-07 17:37] LABS: INR 1.2; Prothrombin Time 13.1 Seconds (9.4-12.1)
[2021-03-07 17:45] LABS: Heparin anti-factor XA UFH 1.19 IU/mL (0.30-0.70)
[2021-03-07] MEDS: Melatonin 3 MG TABLET PO SCH (20:19)
[2021-03-07] MEDS: Latanoprost 2.5 ML BOTTLE BOTH EYES SCH (20:19)
[2021-03-07] MEDS: *HR* LORazepam 2 MG/ML VIAL IVP PRN (22:30)
[2021-03-08] MEDS: *HR* OxyCODONE Immed Rel 5 MG TABLET PO PRN ×3 (01:41→20:12)
[2021-03-08] MEDS: Dexmedetomidine HCl 400 MCG/100 ML MLS IVC SCH ×2 (01:45→21:35)
[2021-03-08 03:00] LABS: Basophils % 0.2 %; Monocytes % 3.9 %
[2021-03-08 03:01] LABS: Basophils # 0.1 K/mcL (0.0-0.2); Hematocrit 44.6 % (37.5-50.1); Hemoglobin 15.1 g/dL (12.9-16.9); Immature Granulocytes % 2.8 % (0-4); Lymphocytes # 1.2 K/mcL (0.6-4.6); Lymphocytes % 4.1 %; Mean Corpuscular HGB Conc 33.9 g/dL (31.6-35.5); Mean Corpuscular Hemoglobin 29.8 pg (28.0-33.3); Mean Platelet Volume 10.3 fL (9.4-12.4); Monocytes # 1.2 K/mcL (0.0-1.3); Neutrophils # 26.3 K/mcL (1.6-8.9); Platelet Count 234 K/mcL (140-400); Red Blood Count 5.07 M/mcL (4.19-5.50); Red Cell Distribution Width 13.7 % (11.5-14.5); White Blood Count 29.6 K/mcL (4.3-11.1)
[2021-03-08 03:08] LABS: Heparin anti-factor XA UFH 0.76 IU/mL (0.30-0.70)
[2021-03-08 03:20] LABS: Alanine Aminotransferase 396 Units/L (7-52); Albumin 3.2 g/dL (3.5-5.7); Alkaline Phosphatase 190 Units/L (34-104); Aspartate Amino Transferase 102 Units/L (13-39); BUN/Creatinine Ratio 57 (6-26); Bilirubin,Total 1.6 mg/dL (0.3-1.0); Blood Urea Nitrogen 49 mg/dL (8-23); C-Reactive Protein 19 mg/L (Less than 10); Calcium 8.8 mg/dL (8.6-10.3); Carbon Dioxide 24 mEq/L (23-29); Chloride 99 mEq/L (98-107); Globulin 3.2 g/dL (2.4-3.5); Glucose 153 mg/dL (70-105); Lactate Dehydrogenase 1086 Units/L (140-271); Magnesium 2.4 mg/dL (1.6-2.6); Osmolality,Calculated 294 (280-300); Sodium 134 mEq/L (136-145); Total Protein 6.4 g/dL (6.4-8.9); eGFR For African Americans > 60 (> 60); eGFR For Non-African Americans > 60 (> 60)
[2021-03-08 03:29] LABS: Platelet Estimate Normal (Normal)
[2021-03-08] MEDS: Ipratropium 1 PUFF INHALER IH SCH ×6 (03:33→23:34)
[2021-03-08 03:38] LABS: Ferritin > 1500 ng/mL (20-250)
[2021-03-08] MEDS: Saline Nasal Spray 44 ML BOTTLE NS PRN (08:27)
[2021-03-08] MEDS: Benzocaine 20% 12 APPL GEL..GRAM. TP PRN (08:28)
[2021-03-08] MEDS: Nystatin POWDER 30 GM BOTTLE TP SCH ×2 (08:28→20:13)
[2021-03-08] MEDS: Cholecalciferol (D-3) 1,000 UNIT (25MCG) TABLET PO SCH (08:28)
[2021-03-08] MEDS: Artificial Tears SOLN 15 ML BOTTLE BOTH EYES SCH ×4 (08:29→20:13)
[2021-03-08] MEDS: Dorzolamide OPTH 10 ML BOTTLE BOTH EYES SCH ×2 (08:29→20:13)
[2021-03-08] MEDS: Heparin 25,000UNIT/250ML 1/2NS 25,000 UNIT/250 ML IV.SOLN IVC SCH (08:30)
[2021-03-08] MEDS: *HR* LORazepam 2 MG/ML VIAL IVP PRN (15:49)
[2021-03-08] MEDS: Melatonin 3 MG TABLET PO SCH (20:12)
[2021-03-08] MEDS: Latanoprost 2.5 ML BOTTLE BOTH EYES SCH (20:14)
[2021-03-09 02:42] LABS: Heparin anti-factor XA UFH 0.69 IU/mL (0.30-0.70)
[2021-03-09] MEDS: Ipratropium 1 PUFF INHALER IH SCH ×6 (04:11→23:39)
[2021-03-09] MEDS: Heparin 25,000UNIT/250ML 1/2NS 25,000 UNIT/250 ML IV.SOLN IVC SCH (07:29)
[2021-03-09] MEDS: Cholecalciferol (D-3) 1,000 UNIT (25MCG) TABLET PO SCH (07:43)
[2021-03-09] MEDS: Artificial Tears SOLN 15 ML BOTTLE BOTH EYES SCH ×4 (07:44→20:30)
[2021-03-09] MEDS: Dorzolamide OPTH 10 ML BOTTLE BOTH EYES SCH ×2 (07:45→19:39)
[2021-03-09] MEDS: *HR* OxyCODONE Immed Rel 5 MG TABLET PO PRN ×2 (07:46→14:54)
[2021-03-09] MEDS: Nystatin POWDER 30 GM BOTTLE TP SCH ×2 (07:47→19:39)
[2021-03-09] MEDS: Furosemide 20 MG/2 ML VIAL IVP SCH (07:47)
[2021-03-09] MEDS ORDERED: Lidocaine -MPF 1% 5 ML AMPUL INFILT ONE (09:25)
[2021-03-09 14:45] LABS: Hematocrit 44.9 % (37.5-50.1); Hemoglobin 14.8 g/dL (12.9-16.9); Immature Platelets 6.6 % (1.1-6.1); Mean Corpuscular Hemoglobin 28.8 pg (28.0-33.3); Mean Corpuscular Volume 87.5 fL (83.0-100.0); Mean Platelet Volume 10.2 fL (9.4-12.4); Nucleated Red Blood Cells 0.1 /100 WBC (0); Red Blood Count 5.13 M/mcL (4.19-5.50); Red Cell Distribution Width 13.5 % (11.5-14.5); White Blood Count 27.1 K/mcL (4.3-11.1)
[2021-03-09] MEDS: *HR* LORazepam 2 MG/ML VIAL IVP PRN ×3 (14:52→22:17)
[2021-03-09 15:00] LABS: Platelet Count 73 K/mcL (140-400)
[2021-03-09 15:03] LABS: Alanine Aminotransferase 367 Units/L (7-52); Albumin 3.2 g/dL (3.5-5.7); Albumin/Globulin Ratio 1.1 (1.1-2.2); Alkaline Phosphatase 255 Units/L (34-104); Aspartate Amino Transferase 94 Units/L (13-39); BUN/Creatinine Ratio 65 (6-26); Bilirubin,Total 1.6 mg/dL (0.3-1.0); Blood Urea Nitrogen 51 mg/dL (8-23); Calcium 8.5 mg/dL (8.6-10.3); Carbon Dioxide 22 mEq/L (23-29); Chloride 96 mEq/L (98-107); Glucose 194 mg/dL (70-105); Magnesium 2.2 mg/dL (1.6-2.6); Osmolality,Calculated 285 (280-300); Phosphorous 3.2 mg/dL (2.7-4.5); Sodium 128 mEq/L (136-145); Total Protein 6.2 g/dL (6.4-8.9); Triglycerides 196 mg/dL (< 150); eGFR For African Americans > 60 (> 60); eGFR For Non-African Americans > 60 (> 60)
[2021-03-09 15:16] LABS: Lymphocytes # 1.1 K/mcL (0.6-4.6); Monocytes # 1.1 K/mcL (0.0-1.3); Neutrophils # 24.9 K/mcL (1.6-8.9)
[2021-03-09 15:17] LABS: Platelet Estimate Slight Decrease (Normal)
[2021-03-09 15:18] LABS: Anisocytosis 1+ (Not Present); Large Platelets Present (Not Present)
[2021-03-09] MEDS: Dexmedetomidine HCl 400 MCG/100 ML MLS IVC SCH (18:32)
[2021-03-09] MEDS: Melatonin 3 MG TABLET PO SCH (19:39)
[2021-03-09] MEDS: Benzonatate 100 MG CAPSULE PO PRN (19:40)
[2021-03-09] MEDS: Latanoprost 2.5 ML BOTTLE BOTH EYES SCH (19:40)
[2021-03-10] MEDS: *HR* LORazepam 2 MG/ML VIAL IVP PRN ×7 (00:21→23:28)
[2021-03-10] MEDS: *HR* OxyCODONE Immed Rel 5 MG TABLET PO PRN ×2 (02:02→12:22)
[2021-03-10] MEDS: Ipratropium 1 PUFF INHALER IH SCH ×5 (03:56→20:25)
[2021-03-10 04:30] LABS: Basophils % 0.4 %
[2021-03-10 04:32] LABS: Basophils # 0.1 K/mcL (0.0-0.2); Hematocrit 43.1 % (37.5-50.1); Hemoglobin 14.4 g/dL (12.9-16.9); Immature Granulocytes % 4.3 % (0-4); Immature Platelets 7.3 % (1.1-6.1); Lymphocytes # 1.9 K/mcL (0.6-4.6); Lymphocytes % 7.5 %; Mean Corpuscular HGB Conc 33.4 g/dL (31.6-35.5); Mean Corpuscular Hemoglobin 29.3 pg (28.0-33.3); Mean Corpuscular Volume 87.8 fL (83.0-100.0); Mean Platelet Volume 10.9 fL (9.4-12.4); Monocytes # 0.8 K/mcL (0.0-1.3); Monocytes % 3.2 %; Nucleated Red Blood Cells 0.1 /100 WBC (0); Red Blood Count 4.91 M/mcL (4.19-5.50); Red Cell Distribution Width 13.6 % (11.5-14.5); Segmented Neutrophils % 84.6 %; White Blood Count 24.8 K/mcL (4.3-11.1)
[2021-03-10 04:41] LABS: Platelet Count 50 K/mcL (140-400)
[2021-03-10 04:46] LABS: Heparin anti-factor XA UFH 0.45 IU/mL (0.30-0.70)
[2021-03-10 04:49] LABS: Alanine Aminotransferase 282 Units/L (7-52); Albumin/Globulin Ratio 1.1 (1.1-2.2); Alkaline Phosphatase 223 Units/L (34-104); Aspartate Amino Transferase 65 Units/L (13-39); BUN/Creatinine Ratio 62 (6-26); Bilirubin,Total 1.8 mg/dL (0.3-1.0); Blood Urea Nitrogen 45 mg/dL (8-23); C-Reactive Protein 10 mg/L (Less than 10); Calcium 8.6 mg/dL (8.6-10.3); Carbon Dioxide 23 mEq/L (23-29); Chloride 99 mEq/L (98-107); Globulin 2.8 g/dL (2.4-3.5); Glucose 156 mg/dL (70-105); Lactate Dehydrogenase 1060 Units/L (140-271); Magnesium 2.3 mg/dL (1.6-2.6); Osmolality,Calculated 283 (280-300); Potassium 4.9 mEq/L (3.5-5.1); Sodium 129 mEq/L (136-145); Total Protein 5.8 g/dL (6.4-8.9); eGFR For African Americans > 60 (> 60); eGFR For Non-African Americans > 60 (> 60)
[2021-03-10 05:10] LABS: Ferritin > 1500 ng/mL (20-250)
[2021-03-10] MEDS: Heparin 25,000UNIT/250ML 1/2NS 25,000 UNIT/250 ML IV.SOLN IVC SCH (07:56)
[2021-03-10] MEDS: Dexmedetomidine HCl 400 MCG/100 ML MLS IVC SCH ×2 (08:46→23:20)
[2021-03-10] MEDS: Artificial Tears SOLN 15 ML BOTTLE BOTH EYES SCH ×4 (09:09→20:51)
[2021-03-10] MEDS: Cholecalciferol (D-3) 1,000 UNIT (25MCG) TABLET PO SCH (09:09)
[2021-03-10] MEDS: Furosemide 20 MG/2 ML VIAL IVP SCH ×2 (09:09→20:51)
[2021-03-10] MEDS: Nystatin POWDER 30 GM BOTTLE TP SCH ×2 (09:10→20:52)
[2021-03-10] MEDS: Dorzolamide OPTH 10 ML BOTTLE BOTH EYES SCH ×2 (09:10→20:53)
[2021-03-10] MEDS: Benzocaine 20% 12 APPL GEL..GRAM. TP PRN (18:54)
[2021-03-10] MEDS: Melatonin 3 MG TABLET PO SCH (20:51)
[2021-03-10] MEDS: Latanoprost 2.5 ML BOTTLE BOTH EYES SCH (20:53)
[2021-03-11 00:13] LABS: ABG Base Excess 0 mEq/L (-2 to 3); ABG HCO3 23 mEq/L (21-27); ABG Oxygen Saturation 94 % (95-98); ABG PCO2 34 mmHg (35-45); ABG PH 7.44 pH Units (7.32-7.45); ABG PO2 67 mmHg (85-104); ABG TCO2 25 mEq/L (20-26)
[2021-03-11 00:38] LABS: Nucleated Red Blood Cells 0.1 /100 WBC (0)
[2021-03-11 00:39] LABS: Hematocrit 48.2 % (37.5-50.1); Hemoglobin 15.7 g/dL (12.9-16.9); Immature Platelets 13.4 % (1.1-6.1); Mean Corpuscular HGB Conc 32.6 g/dL (31.6-35.5); Mean Corpuscular Volume 89.1 fL (83.0-100.0); Mean Platelet Volume 11.8 fL (9.4-12.4); Red Blood Count 5.41 M/mcL (4.19-5.50); Red Cell Distribution Width 14.2 % (11.5-14.5)
[2021-03-11 00:41] LABS: Platelet Count 35 K/mcL (140-400)
[2021-03-11 00:52] LABS: Heparin anti-factor XA UFH 0.66 IU/mL (0.30-0.70); INR 1.1; Prothrombin Time 12.5 Seconds (9.4-12.1)
[2021-03-11 00:54] LABS: Activated Partial Thrombo Time 42.7 Seconds (26.0-36.0)
[2021-03-11] MEDS: Ipratropium 1 PUFF INHALER IH SCH ×6 (00:55→20:38)
[2021-03-11 01:01] LABS: Lymphocytes # 1.7 K/mcL (0.6-4.6); Monocytes # 0.6 K/mcL (0.0-1.3); Neutrophils # 26.7 K/mcL (1.6-8.9); Platelet Estimate Marked Decrease (Normal)
[2021-03-11] MEDS: Argatroban 250 MG in 0.9 % Sodium Chloride 250 ML IVC SCH ×2 (01:32→17:56)
[2021-03-11] MEDS: Heparin 25,000UNIT/250ML 1/2NS 25,000 UNIT/250 ML IV.SOLN IVC SCH (01:34)
[2021-03-11] MEDS ORDERED: 0.9 % Sodium Chloride 500 ML IV ONE (04:24)
[2021-03-11] MEDS ORDERED: 0.9 % Sodium Chloride 500 ML ONE (04:27)
[2021-03-11 05:34] LABS: Heparin anti-factor XA UFH < 0.04 IU/mL (0.30-0.70)
[2021-03-11 05:58] LABS: D-Dimer 13170 ng/mLFEU (0-500)
[2021-03-11 06:00] LABS: Nucleated Red Blood Cells 0.1 /100 WBC (0); Red Blood Count 4.96 M/mcL (4.19-5.50)
[2021-03-11 06:02] LABS: Hematocrit 43.7 % (37.5-50.1); Hemoglobin 14.2 g/dL (12.9-16.9); Immature Platelets 13.7 % (1.1-6.1); Mean Corpuscular HGB Conc 32.5 g/dL (31.6-35.5); Mean Corpuscular Hemoglobin 28.6 pg (28.0-33.3); Mean Corpuscular Volume 88.1 fL (83.0-100.0); Mean Platelet Volume 10.9 fL (9.4-12.4); White Blood Count 26.7 K/mcL (4.3-11.1)
[2021-03-11 06:18] LABS: Alanine Aminotransferase 205 Units/L (7-52); Albumin/Globulin Ratio 1.1 (1.1-2.2); Alkaline Phosphatase 203 Units/L (34-104); Aspartate Amino Transferase 56 Units/L (13-39); BUN/Creatinine Ratio 59 (6-26); Bilirubin,Total 1.4 mg/dL (0.3-1.0); Blood Urea Nitrogen 67 mg/dL (8-23); Calcium 8.3 mg/dL (8.6-10.3); Carbon Dioxide 24 mEq/L (23-29); Chloride 101 mEq/L (98-107); Globulin 2.7 g/dL (2.4-3.5); Glucose 139 mg/dL (70-105); Osmolality,Calculated 300 (280-300); Potassium 4.7 mEq/L (3.5-5.1); Sodium 134 mEq/L (136-145); Total Protein 5.7 g/dL (6.4-8.9); Troponin I 0.16 ng/mL (< 0.04); eGFR For African Americans > 60 (> 60); eGFR For Non-African Americans > 60 (> 60)
[2021-03-11 06:23] LABS: Platelet Count 27 K/mcL (140-400)
[2021-03-11 06:52] LABS: Bilirubin,Direct 0.3 mg/dL (0.0-0.2); Bilirubin,Indirect 1.1 mg/dL (0.0-1.0)
[2021-03-11 06:54] LABS: Lymphocytes # 2.1 K/mcL (0.6-4.6); Monocytes # 1.1 K/mcL (0.0-1.3); Platelet Estimate Decreased (Normal)
[2021-03-11] MEDS: Cholecalciferol (D-3) 1,000 UNIT (25MCG) TABLET PO SCH (11:23)
[2021-03-11] MEDS: Nystatin POWDER 30 GM BOTTLE TP SCH ×2 (13:11→20:20)
[2021-03-11] MEDS: Artificial Tears SOLN 15 ML BOTTLE BOTH EYES SCH ×4 (13:11→20:21)
[2021-03-11] MEDS: Dorzolamide OPTH 10 ML BOTTLE BOTH EYES SCH ×2 (13:13→20:21)
[2021-03-11] MEDS: Furosemide 20 MG/2 ML VIAL IVP SCH ×2 (13:21→20:20)
[2021-03-11] MEDS: *HR* OxyCODONE Immed Rel 5 MG TABLET PO PRN (14:49)
[2021-03-11] MEDS: Dexmedetomidine HCl 400 MCG/100 ML MLS IVC SCH (17:08)
[2021-03-11] MEDS: Melatonin 3 MG TABLET PO SCH (20:20)
[2021-03-11] MEDS: Latanoprost 2.5 ML BOTTLE BOTH EYES SCH (20:21)
[2021-03-11] MEDS: *HR* LORazepam 2 MG/ML VIAL IVP PRN (21:56)
[2021-03-12] MEDS: Ipratropium 1 PUFF INHALER IH SCH ×5 (00:12→15:21)
[2021-03-12] MEDS: Dexmedetomidine HCl 400 MCG/100 ML MLS IVC SCH (05:57)
[2021-03-12] MEDS: *HR* LORazepam 2 MG/ML VIAL IVP PRN ×6 (06:30→13:17)
[2021-03-12 07:50] VITALS: TEMP 96
[2021-03-12 09:31] VITALS: O2SAT 94
[2021-03-12] MEDS: *HR* OxyCODONE Immed Rel 5 MG TABLET PO PRN (10:07)
[2021-03-12] MEDS: Artificial Tears SOLN 15 ML BOTTLE BOTH EYES SCH ×2 (10:07→16:16)
[2021-03-12] MEDS: Nystatin POWDER 30 GM BOTTLE TP SCH (10:08)
[2021-03-12 10:41] VITALS: BP 139/90; PULSE 116
[2021-03-12] MEDS: Morphine Sulfate 2 MG/ML SYRINGE IVP PRN ×6 (11:16→13:28)
[2021-03-12] MEDS: Cholecalciferol (D-3) 1,000 UNIT (25MCG) TABLET PO SCH (12:51)
[2021-03-12] MEDS: Dorzolamide OPTH 10 ML BOTTLE BOTH EYES SCH (16:15)
[2021-03-12] MEDS: Furosemide 20 MG/2 ML VIAL IVP SCH (16:15)
== END 2021-03-12 15:49 | disposition expired | DRG 871 ==
LOC: EMEROOARM 16:40 → SUATTDRO 21:38 → 2NNU 21:38
PROVIDERS: ADMIT Internal Medicine; ATTEND Family Medicine